=== PATIENT | female | born 1940 | race Caucasian/White ===

== ENCOUNTER 2018-05-31 15:55 | Emergency (ER) | payer OTHER ==
[~2018-05-31] VITALS: Ht 162.6 cm; Wt 75.0 kg
[2018-05-31] MEDS ORDERED: FUROSEMIDE20 MG PO (16:03)
[2018-05-31] MEDS ORDERED: ACID REDUCER 1150 MG PO (16:03)
[2018-05-31] MEDS ORDERED: LEVOTHYROXINE0.05 MG PO (16:03)
[2018-05-31] MEDS ORDERED: WARFARIN SOD5 MG PO (16:03)
[2018-05-31 16:20] LABS: HEMATOCRIT 46.1 % (37.0-47.0); HEMOGLOBIN 14.8 g/dL (12.5-16.0); MEAN CELL VOLUME 90 fl (78-100); MEAN CORPUSCULAR HEMOGLOBIN 29 pg (27-31); MEAN CORPUSCULAR HGB CONC 32 g/dL (33-37); MEAN PLATELET VOLUME 9.6 fl (7.4-10.4); PLATELET COUNT 309 K/mm3 (130-400); RED BLOOD COUNT 5.13 M/mm3 (4.10-5.30); RED CELL DISTRIBUTION WIDTH 15.3 % (11.5-14.5); WHITE BLOOD COUNT 7.4 K/mm3 (4.8-10.8)
[2018-05-31 16:41] LABS: ALBUMIN 4.4 g/dL (3.5-5.0); BUN/CREATININE RATIO 15.4 (6.0-26.0); CALCIUM 9.2 mg/dL (8.4-10.2); POTASSIUM 3.9 mmol/L (3.6-5.0); TOTAL BILIRUBIN 0.2 mg/dL (0.2-1.3); TOTAL PROTEIN 7.9 g/dL (6.3-8.2)
[2018-05-31 16:47] LABS: CKMB ISOENZYME 2.4 ng/mL (0.6-3.5)
[2018-05-31 16:50] LABS: TROPONIN-I < 0.03 ng/mL (0.00-0.06)
[2018-05-31 17:07] LABS: D-DIMER 0.3 mg/L FEU (0.15-0.50)
[2018-05-31 17:08] LABS: LYMPHOCYTE 23 % (20-51); MONOCYTE 10 % (3-10); NEUTROPHILS 64 % (42-75)
[2018-05-31 18:17] VITALS: BP 129/78
[2018-05-31 18:23] LABS: PROTHROMBIN TIME 17.3 SECONDS (9.0-12.0)
== END 2018-05-31 18:12 | disposition home or self-care (01) ==
LOC: ED 15:55
PROVIDERS: Nurse Practitioner Primary Care
DX: I48.0 Paroxysmal atrial fibrillation (principal); Z79.01 Long term (current) use of anticoagulants; Z79.899 Other long term (current) drug therapy

== ENCOUNTER → 2019-08-18 | Outpatient (CLI) | payer MEDICARE ==
[~2019-08-18] MED LIST: ACID REDUCER 1150 MG PO; FUROSEMIDE20 MG PO; LEVOTHYROXINE0.05 MG PO; WARFARIN SOD5 MG PO
== END ==
LOC: RAD 08:46 → MAMMO 09:15
DX: Z13.820 Encounter for screening for osteoporosis (principal)

== ENCOUNTER 2019-09-08 09:30 | Outpatient (RCR) | payer MEDICARE | END 2019-09-08 10:00 | disposition still patient (30) | LOC: OT 09:30 | DX: M25.532 Pain in left wrist (principal) ==

== ENCOUNTER → 2019-10-21 | Outpatient (CLI) | payer MEDICARE | LOC: AMSURD 14:24 | DX: I48.0 Paroxysmal atrial fibrillation (principal) ==

== ENCOUNTER → 2020-09-20 | Outpatient (CLI) | payer MEDICARE | LOC: AMSURD 09:25 | DX: I48.91 Unspecified atrial fibrillation (principal) ==

== ENCOUNTER → 2021-09-18 | Outpatient (CLI) | payer MEDICARE | LOC: MAMMO 13:37 | DX: Z13.820 Encounter for screening for osteoporosis (principal); Z78.0 Asymptomatic menopausal state ==

== ENCOUNTER → 2021-09-30 | Outpatient (CLI) | payer MEDICARE | LOC: MAMMO 09-25 13:45 | DX: Z12.31 Encounter for screening mammogram for malignant neoplasm of breast (principal) ==

== ENCOUNTER → 2022-01-22 | Day surgery (SDC) | payer MEDICARE | END | disposition home or self-care (01) | LOC: MSO 09:40 | DX: H25.13 Age-related nuclear cataract, bilateral (principal); Z79.01 Long term (current) use of anticoagulants | CPT/HCPCS: 00142; J0171; J2250; V2632 ==

== ENCOUNTER → 2022-02-26 | Day surgery (SDC) | payer MEDICARE | END | disposition home or self-care (01) | LOC: MSO 08:09 | DX: H26.9 Unspecified cataract (principal) | CPT/HCPCS: 00142; J0171; J2250; V2632 ==

== ENCOUNTER → 2022-04-04 | Outpatient (CLI) | payer MEDICARE | LOC: VAS 13:22 → RAD 13:30 | DX: R60.0 Localized edema (principal) ==

== ENCOUNTER → 2022-12-22 | Outpatient (CLI) | payer MEDICARE | LOC: PT 13:20 | DX: M17.12 Unilateral primary osteoarthritis, left knee (principal) ==

== ENCOUNTER → 2023-01-16 | Outpatient (CLI) | payer MEDICARE | LOC: RAD 14:33 | DX: Z01.810 Encounter for preprocedural cardiovascular examination (principal); I51.7 Cardiomegaly ==

== ENCOUNTER 2023-02-09 13:57 | Outpatient (RCR) | payer MEDICARE | END 2023-02-13 | disposition home or self-care (01) | LOC: PT | DX: Z96.652 Presence of left artificial knee joint (principal) ==

== ENCOUNTER → 2023-12-08 | Outpatient (CLI) | payer MEDICARE | LOC: RAD 13:08 | DX: M25.561 Pain in right knee (principal) ==

== ENCOUNTER 2024-01-13 14:48 | Outpatient (RCR) | payer MEDICARE | END 2024-01-14 | LOC: PT | DX: M25.561 Pain in right knee (principal) ==

== ENCOUNTER 2024-03-18 08:00 | Outpatient (RCR) | payer MEDICARE | END 2024-04-15 | LOC: PT | DX: M25.561 Pain in right knee (principal); Z96.651 Presence of right artificial knee joint ==

== ENCOUNTER → 2024-06-07 | Outpatient (CLI) | payer MEDICARE | LOC: RAD 08:03 | DX: R51.9 Headache, unspecified (principal); R09.89 Other specified symptoms and signs involving the circulatory and respiratory systems ==

== ENCOUNTER → 2024-07-14 | Outpatient (CLI) | payer MEDICARE | LOC: AMSURD 14:45 | DX: I44.30 Unspecified atrioventricular block (principal) ==

== ENCOUNTER 2024-10-09 13:28 | Emergency (ER) | payer MEDICARE ==
[~2024-10-09] VITALS: Ht 157.5 cm; Wt 72.7 kg
[2024-10-09] MEDS ORDERED: FLECAINIDE ACET50 MG PO (14:05)
[2024-10-09] MEDS ORDERED: LOPRESSOR 225 MG/TAB PO (14:05)
[2024-10-09] MEDS ORDERED: VAZALORE81 MG PO (14:06)
[2024-10-09 15:40] VITALS: BP 125/68
[2024-10-09] MEDS ORDERED: Tdap Vaccine 0.5 ML SYRINGE IM ONE (15:45)
== END 2024-10-09 15:55 | disposition home or self-care (01) ==
LOC: ED 13:28
DX: S52.502A Unspecified fracture of the lower end of left radius, initial encounter for closed fracture (principal); S01.01XA Laceration without foreign body of scalp, initial encounter; Z79.01 Long term (current) use of anticoagulants; Z23 Encounter for immunization; W01.198A Fall on same level from slipping, tripping and stumbling with subsequent striking against other object, initial encounter; Y92.89 Other specified places as the place of occurrence of the external cause
CPT/HCPCS: 90715